=== PATIENT | male | born 1990 | race Caucasian/White ===

== ENCOUNTER 2023-02-14 10:51 | Emergency (ER) | payer BC, MEDICAID, SELFPAY ==
--- NOTE | 2023-02-14 10:51 | ECG_ITS ---
APPROVED REPORT Exam: Resting ECG HR:84 bpm ECG Measurements Heart Rate 84 AXES UT 136 P 39 QRSd 116 QRS 18 QT 361 T 31 QTc 402 Conclusion SINUS RHYTHM POSSIBLE RIGHT VENTRICULAR CONDUCTION DELAY [RSR (QR) IN V1/V2] POSSIBLE LATERAL MYOCARDIAL INFARCTION , PROBABLY OLD [30 ms Q WAVE IN I/aVL/V5/V6] BORDERLINE ECG UNCONFIRMED REPORT Electronically signed by : Chris Wild MD 02/14/2023 20:03:48
[2023-02-14 10:53] VITALS: BP 133/90; PULSE 84; RESP 16; TEMP 36.7; O2SAT 98; BMI 36.9
[2023-02-14 11:00] VITALS: BP 120/84; PULSE 82; RESP 13
--- NOTE | 2023-02-14 11:06 | XR_ITS ---
FINAL REPORT CLINICAL HISTORY: chest pain FINDINGS: SINGLE-VIEW CHEST The heart size is normal. The mediastinum is normal. The lungs are clear. There is no pneumothorax. IMPRESSION: No acute cardiopulmonary process. Reviewed, Interpreted and Dictated by Joao Hurst III, MD Transcribed by Nicki Coleman Authenticated and [facility]
--- NOTE | 2023-02-14 11:20 | HMH.EDGENADL ---
Discharge Plan Disposition Patient Disposition: Home, Self-Care Condition: Good Prescriptions Prescriptions: New amoxicillin-pot clavulanate 875-125 mg tablet 1 tab PO BID Qty: 20 0RF prednisone 50 mg tablet 50 mg PO DAILY 7 Days Qty: 7 0RF naproxen [Naprosyn] 500 mg tablet 500 mg PO BID PRN (Reason: pain) Qty: 20 0RF Referrals Follow up/Referrals: Provider,Referral, MD [Primary Care Provider] - See instructions Clinical Impressions Clinical Impression: Acute sinusitis, Atypical chest pain Instructions Patient Instructions: Sinusitis, DI for Sinusitis, DI for Atypical Chest Pain Discharge ED Provider: Kwesi Lewis General Adult HPI General Chief complaint: Chest Pain Stated complaint: CP Time Seen by Provider: 02/14/23 11:00 Mode of Arrival: Ambulatory Source of Information: Patient and Spouse Limitations: No Limitations Description of Symptoms (Recalled from ER Triage Doc. by RN): 32 yo M presents to ED with c/o midsternal chest pain. pt states that chest pain intermittent and ongoing for the past few days. pt states that he has also had sinus drainage ongoing for the past month. History of Present Illness HPI narrative: This is a 32-year-old white male who states for the past month he has had nasal congestion and sinus pressure with discharge that initially was light yellow and recently changed to dark green-brown and black. Patient also states over the course the past few days he has had pleuritic type chest pain and a cough productive of clear to yellow sputum. Patient is a smoker. Patient denies any fevers chills nausea vomiting. Patient does admit to a frontal headache. No neck stiffness no unilateral weakness or numbness no nausea vomiting diaphoresis Related Data Previous Rx's Medication Instructions Recorded amoxicillin 875 mg-potassium 1 tab PO BID #20 tabs 02/14/23 clavulanate 125 mg tablet naproxen 500 mg tablet (Naprosyn) 500 mg PO BID PRN pain #20 tabs 02/14/23 prednisone 50 mg tablet 50 mg PO DAILY 7 days #7 tabs 02/14/23 Allergies Allergy/AdvReac Type Severity Reaction Status Date / Time No Known Allergies Allergy Verified 05/23/19 18:19 [facility] Disclaimer: The information contained in this section may have been updated after the patient was seen, as this information can be updated by other users. Social History Smoking Status: Current every day smoker alcohol intake: current current occupational status: employed Travel in the last 8 weeks: Inside the [place] ROS Obtained: Yes All systems reviewed & no additional complaints except as documented Skin no rash or lesions HEENT see HPI Pulmonary see HPI Cardiovascular no chest pain pressure heaviness GI no abdominal pain nausea or vomiting no dysuria pyuria hematuria Musculoskeletal no neck or back pain Endocrine no polydipsia polyuria or polyphasia Psych no SI or HI The rest of the systems were reviewed and found to be negative Physical Exam Narrative Physical exam: Skin: Warm and dry HEENT: Normocephalic atraumatic extract muscles are intact pupils are equal and reactive to light there is tenderness to percussion over bilateral frontal and maxillary sinuses. Pharynx is not injected. Neck: Supple nontender Lungs: Clear to auscultation Heart: Regular rate and rhythm Chest: There is reproducible costochondral tenderness. Abdomen: NABS soft nontender Extremities: No clubbing cyanosis or edema Neurologic: No unilateral weakness or numbness Lymphatic: No cervical or inguinal adenopathy Musculoskeletal: No tenderness of the dorsal or lumbar spine Psych: No SI or HI General General appearance: alert Respiratory Respiratory exam: Present normal lung sounds bilaterally Cardiovascular Cardiovascular exam: Present regular rate Neurological Exam Neurological exam: Present alert Medical Decision Making Kevin Inquiry Pt receiving controlled substance: No Vital Signs: 02/14/23
[2023-02-14 11:24] LABS: Anion Gap 11.8 mEq/L (5-15); Blood Urea Nitrogen 9 mg/dl (9-20); Carbon Dioxide 29 mmol/L (22.0-30.0); Chloride 102 mmol/L (98-107); Creatinine Clearance Estimated 215 mL/min (50-200); Estimated Glomerular Filt Rate 113 ml/min (>60); GFR (African American) 136 ML/MIN (>60); Glucose 84 mg/dl (74-100); Potassium 3.8 mmoL/L (3.5-5.1); Sodium 139 mmol/L (136-145)
[2023-02-14 11:31] LABS: Basophils # 0.1 K/mm3 (0-0.2); Basophils % 0.6 % (0.1-2.0); Eosinophils # 0.2 K/mm3 (0.0-0.4); Hematocrit 51.9 % (42.0-52.0); Hemoglobin 17.2 g/dL (14.1-18.0); Lymphocytes # 2.1 K/mm3 (0.7-4.5); Lymphocytes % 26.7 % (10-50); Mean Corpuscular HGB Conc 33.1 g/dL (31.8-35.4); Mean Corpuscular Hemoglobin 33.8 pg (27.0-31.2); Mean Corpuscular Volume 102.3 fl (80-94); Mean Platelet Volume 8.1 fl (7.4-10.4); Monocytes # 0.5 K/mm3 (0.1-1.0); Monocytes % 6.9 % (1.7-9.3); Neutrophils % 63.9 % (37.0-80.0); Platelet Count 256 K/mm3 (142-424); Red Blood Count 5.07 M/mm3 (4.60-6.20); White Blood Count 7.8 K/mm3 (4.8-10.8)
[2023-02-14 11:36] LABS: Troponin I < 0.01 ng/ml (0.00-0.034)
[2023-02-14 11:45] VITALS: BP 133/96; PULSE 82; RESP 14; TEMP 36.7
== END 2023-02-14 11:47 | disposition home or self-care (01) ==
PROVIDERS: Emergency Provider Emergency Medicine
DX: J01.90 Acute sinusitis, unspecified; R07.81 Pleurodynia; F17.200 Nicotine dependence, unspecified, uncomplicated; I45.19 Other right bundle-branch block
CPT/HCPCS: 71045; 80048; 84484; 85025; 93005; 96374; 99285

== ENCOUNTER 2024-08-17 12:43 | Emergency (ER) | payer MEDICAID, SELFPAY ==
[2024-08-17 12:44] VITALS: BP 149/92; PULSE 120; RESP 18; TEMP 36.8; O2SAT 96; BMI 34.7
--- NOTE | 2024-08-17 13:12 | ECG_ITS ---
APPROVED REPORT Exam: Resting ECG HR:117 bpm ECG Measurements Heart Rate 117 AXES IL 139 P 57 QRSd 108 QRS 31 QT 308 T 60 QTc 378 Conclusion SINUS TACHYCARDIA INCOMPLETE RIGHT BUNDLE BRANCH BLOCK [90+ ms QRS DURATION, TERMINAL R IN V1/V2, 40+ ms S IN I/aVL/V4/V5/V6] Electronically signed by : JOSE CARVAJAL, 08/17/2024 16:07:46
--- NOTE | 2024-08-17 13:32 | ED_ITS ---
<Statement entered by Teagan Castrejon DO - 08/17/24 15:42> I was consulted by the LUDMILA, and we discussed the complexity of the problems being addressed. I approved the treatment and management plan for this patient's care in the emergency department, thus performing a substantive portion of the medical decision making. Teagan Castrejon DO Discharge Plan Disposition Patient Disposition: Home, Self-Care Condition: Good Prescriptions Prescriptions: No Action amoxicillin-pot clavulanate 875-125 mg tablet 1 tab PO BID Qty: 20 0RF prednisone 50 mg tablet 50 mg PO DAILY 7 Days Qty: 7 0RF naproxen [Naprosyn] 500 mg tablet 500 mg PO BID PRN (Reason: pain) Qty: 20 0RF Referrals Follow up/Referrals: Andie Camarena APRN [Nurse Practitioner] - See instructions Provider,ReferralMD [Primary Care Provider] - See instructions Activity Restrictions/Add. Instructions Additional Instructions/Restrictions: Increase fluids and rest. May take daily allergy medicine to help with drainage. Call Sunshine Camarena APRN for follow-up with ENT to see if there is any additional testing or workup you may need. Clinical Impressions Clinical Impression: Pharyngitis Instructions Patient Instructions: Sore Throat, Viral Pharyngitis Print Language Print Language: Armenian Discharge ED Provider: Teagan Castrejon General Adult HPI <Rani Reyna (ED)FÉLIX - Last Filed: 08/17/24 15:39> General Chief complaint: Upper Respiratory Infection Stated complaint: red, swollen throat/lymph nodes Time Seen by Provider: 08/17/24 12:58 Mode of Arrival: Ambulatory Source of Information: Patient Limitations: No Limitations Description of Symptoms (Recalled from ER Triage Doc. by RN): PT C/O RED SWOLLEN THROAT AND LYMPHNODES X 3 MONTHS. DENIES FEVER History of Present Illness HPI narrative: This is a 34-year-old male who presents to the ED today with complaint of red swollen throat for the last 3 months. He says the sore part of his throat is gone but the redness and swelling is still there. He denies any fevers, chills, nausea or vomiting. He states that he does have an itchy cough at times but this comes and goes. He says when he does cough it sends pain to the back of his head. He says he is a heavy smoker and a drinker. He drinks heavily. He drinks 6/day during the week and then a 12 pack/day on the weekends. He says he [facility] during the beginning of the illness but was given meds that did not work. He says his lymph nodes are also swollen. Patient is tachycardic when I am in the room at 127 but he also has a Monster energy drink sitting beside him. Related Data Previous Rx's ?Medication ?Instructions ?Recorded amoxicillin 875 mg-potassium 1 tab PO BID #20 tabs 02/14/23 clavulanate 125 mg tablet naproxen 500 mg tablet (Naprosyn) 500 mg PO BID PRN pain #20 tabs 02/14/23 prednisone 50 mg tablet 50 mg PO DAILY 7 days #7 tabs 02/14/23 Allergies Allergy/AdvReac Type Severity Reaction Status Date / Time No Known Allergies Allergy Verified 05/23/19 18:19 PFSH <Rani Reyna (ED), HARNESS CUTTER - Last Filed: 08/17/24 15:39> PFS Disclaimer: The information contained in this section may have been updated after the patient was seen, as this information can be updated by other users. Social History (Updated 02/14/23 @ 11:27 by Kwesi Lewis MD) Smoking Status: Current every day smoker alcohol intake: current current occupational status: employed Travel in the last 8 weeks: Inside the [place] Have you lived/traveled outside [place] in past 30 days?: No Contact w/someone who lives/traveled outside US past 30 days?: No Exposure to someone with infectious disease in past 14 days?: No Do you have a fever (greater than 100.4 F or 38 C)?: No Have you tested positive for COVID-19: No Exposed to someone with COVID-19 in past 14 days?: No Do you have a sore throat?: Yes Do you have a cough?: No Do you have any weakness?: No Do you have any diarrhea?: No Are you experiencing any unusual bleeding?: No Do you have any muscle aches/pain?: No Do you have any abdominal pain?: No Are you experiencing loss of taste or smell?: No <Rani Reyna (ED), HARNESS CUTTER - Last Filed: 08/17/24 15:39> ROS Obtained: Yes Systems reviewed as appropriate & no additional complaints except as documented Constitutional Constitutional: Reports as per HPI Physical Exam <Rani Reyna (ED), HARNESS CUTTER - Last Filed: 08/17/24 15:39> General General appearance: alert and in no apparent distress Head Head exam: atraumatic and normocephalic Eye Eye exam: Present normal appearance, PERRL and EOMI ENT ENT exam: Present normal exam and mucous membranes moist Expanded ENT Exam Mouth exam: Present normal external inspection and tongue normal Comment: Erythema and mild swelling throughout the back of his throat no obvious drainage or masses Neck Neck exam: Present normal inspection, full ROM and trachea midline Respiratory Respiratory exam: Present normal lung sounds bilaterally Cardiovascular Cardiovascular exam: Present normal rhythm, tachycardia, normal heart sounds, +S1 and +S2 Extremities Exam Extremities exam: Present full ROM and normal capillary refill Neurological Exam Neurological exam: Present alert, oriented X3 and normal gait Skin Skin exam: Present warm, dry and intact Medical Decision Making <Rani Reyna (ED), HARNESS CUTTER - Last Filed: 08/17/24 15:39> Medical Records Screening: Per USPSTF and CDC recommendations, given the prevalence of disease in our region, it is our hospital?s policy to screen for HIV and viral Hepatitis for all patients aged 18 and over and those with ongoing risk factors. Kevin Inquiry Pt receiving controlled substance: No Kevin was queried for this patient: No Vital Signs: 08/17/24 12:44 08/17/24 14:29 08/17/24 15:09 Temperature 98.2 F 98.4 F Temperature Source Oral Pulse Rate 104 H 91 H Pulse Rate [Radial] 120 H Respiratory Rate 18 18 18 Blood Pressure 142/94 H 143/69 H Blood Pressure [Left Arm] 149/92 H Blood Pressure Mean [Left Arm] 111 Blood Pressure Source [Left Arm] Automatic Cuff Blood Pressure Position [Left Arm] Sitting 02 Sat by Pulse Oximetry 96 96 Oxygen Delivery Method Room Air Lab Data Lab Results 08/17/24 12:54: Group A Strep Rapid Negative 08/17/24 13:10: Sodium 141, Potassium 4.1, Chloride 110 H, Carbon Dioxide 27, Anion Gap 8.1, BUN 14, Creatinine 1.10, Estimated Creat Clear 144, Estimated GFR 77, Est GFR ( Amer) 93, Glucose 104 H, Calcium 9.4, Total Bilirubin 1.5 H , AST 89 H, ALT 100 H, Alkaline Phosphatase 79, Total Protein 7.4, Albumin 4.4, Globulin 3.0, Albumin/Globulin Ratio 1.5, Chlamy pneumoniae PCR Not detected, Adenovirus (PCR) Not detected, B. pertussis DNA (PCR) Not detected, Coronavirus OC43 (PCR) Not detected, Coronavirus HKU1 (PCR) Not detected, Coronavirus 229E (PCR) Not detected, SARS-CoV-2 (PCR) Not detected, Coronavirus NL63 (PCR) Not detected, Human Metapneumovir PCR Not detected, Influenza A (H1) PCR Not detected, Influ A (H1N1/09) PCR Not detected, Influenza A (H3) PCR Not detected, Influenza Type A (PCR) Not detected, Influenza Type B (PCR) Not detected, M. pneumoniae (PCR) Not detected, Parainfluenza 1 (PCR) Not detected, Parainfluenza 2 (PCR) Not detected, Parainfluenza 3 (PCR) Not detected, Parainfluenza 4 (PCR) Not detected, RSV (PCR) Not detected, Entero/Rhino (PCR) Not detected 08/17/24 13:30: WBC 7.7, RBC 4.69, Hgb 17.5, Hct 48.6, MCV 103.6 H, MCH 37.3 H, MCHC 36.0 H, RDW 13.3, Plt Count 249, MPV 7.7, Neut % (Auto) 61.6, Lymph % (Auto) 28.7, Karnes % (Auto) 7.0, Eos % (Auto) 1.7, Baso % (Auto) 1.1, Neut # (Auto) 4.7, Lymph # (Auto) 2.2, Karnes # (Auto) 0.5, Eos # (Auto) 0.1, Baso # (Auto) 0.1 08/17/24 13:30 08/17/24 13:10 Orders (Tests/Meds): ED MEDICATIONS Discontinued Medications Generic Name Dose Route Start Last Admin Trade Name Freq PRN Reason Stop Dose Admin Sodium Chloride 1,000 mls @ 999 mls/hr 08/17/24 13:10 08/17/24 13:35 Sod Chlor 0.9% 1000ml Bag IV 08/17/24 14:10 999 mls/hr .Q1H1M ONE Administration ORDERS Category Date Time Status CBC w/Auto Diff [Complete Blood Count Auto Diff] Stat Lab 08/17/24 13:30 Completed Comprehensive Metabolic Panel Stat Lab 08/17/24 13:10 Completed Full Resp Panel w/COVID ([facility]) Routine Lab 08/17/24 13:10 Completed HIV (1&2) Antibody Rapid Stat Lab 08/17/24 13:10 Received Hep C Ab with Reflex to RNA Stat Lab 08/17/24 13:10 Received Strep Scrn Group A (Rapid) Stat Lab 08/17/24 12:54 Completed Strep Screen Confirmation Stat Micro 08/17/24 12:54 Received Medical Decision Narrative: Insert review patient is a 34-year-old male presenting to the emergency department for evaluation of 3 months of red, swollen throat. He has had this redness and swelling in his throat for the past 3 months with a occasional itchy cough. He has been treated once by [facility] and the medications did not work for him he is concerned that he has something very serious.. Patient is hemodynamically stable and nontoxic-appearing upon arrival, afebrile. Differential diagnosis includes chronic allergies, lymphadenopathy, chronic cough among others. Workup will be conducted with strep swab, respiratory swab, CBC CMP. Initial inventions include crystalloid bolus as patient's heart rate initially was 121. However patient was drinking 2 monsters while here in the ED.. Initial workup reviewed by al hematologic labs are remarkable for nothing acute. Upon repeat evaluation patient's pain is improved, appears better perfused. Referred patient to ENT. <Teagan Castrejon, DO - Last Filed: 08/17/24 13:41> Vital Signs: 08/17/24 12:44 08/17/24 14:29 08/17/24 15:09 Temperature 98.2 F 98.4 F Temperature Source Oral Pulse Rate 104 H 91 H Pulse Rate [Radial] 120 H Respiratory Rate 18 18 18 Blood Pressure 142/94 H 143/69 H Blood Pressure [Left Arm] 149/92 H Blood Pressure Mean [Left Arm] 111 Blood Pressure Source [Left Arm] Automatic Cuff Blood Pressure Position [Left Arm] Sitting 02 Sat by Pulse Oximetry 96 96 Oxygen Delivery Method Room Air Lab Data Lab Results 08/17/24 12:54: Group A Strep Rapid Negative 08/17/24 13:10: Sodium 141, Potassium 4.1, Chloride 110 H, Carbon Dioxide 27, Anion Gap 8.1, BUN 14, Creatinine 1.10, Estimated Creat Clear 144, Estimated GFR 77, Est GFR ( Amer) 93, Glucose 104 H, Calcium 9.4, Total Bilirubin 1.5 H , AST 89 H, ALT 100 H, Alkaline Phosphatase 79, Total Protein 7.4, Albumin 4.4, Globulin 3.0, Albumin/Globulin Ratio 1.5, Chlamy pneumoniae PCR Not detected, Adenovirus (PCR) Not detected, B. pertussis DNA (PCR) Not detected, Coronavirus OC43 (PCR) Not detected, Coronavirus HKU1 (PCR) Not detected, Coronavirus 229E (PCR) Not detected, SARS-CoV-2 (PCR) Not detected, Coronavirus NL63 (PCR) Not detected, Human Metapneumovir PCR Not detected, Influenza A (H1) PCR Not detected, Influ A (H1N1/09) PCR Not detected, Influenza A (H3) PCR Not detected, Influenza Type A (PCR) Not detected, Influenza Type B (PCR) Not detected, M. pneumoniae (PCR) Not detected, Parainfluenza 1 (PCR) Not detected, Parainfluenza 2 (PCR) Not detected, Parainfluenza 3 (PCR) Not detected, Parainfluenza 4 (PCR) Not detected, RSV (PCR) Not detected, Entero/Rhino (PCR) Not detected 08/17/24 13:30: WBC 7.7, RBC 4.69, Hgb 17.5, Hct 48.6, MCV 103.6 H, MCH 37.3 H, MCHC 36.0 H, RDW 13.3, Plt Count 249, MPV 7.7, Neut % (Auto) 61.6, Lymph % (Auto) 28.7, Karnes % (Auto) 7.0, Eos % (Auto) 1.7, Baso % (Auto) 1.1, Neut # (Auto) 4.7, Lymph # (Auto) 2.2, Karnes # (Auto) 0.5, Eos # (Auto) 0.1, Baso # (Auto) 0.1 Orders (Tests/Meds): ED MEDICATIONS Discontinued Medications Generic Name Dose Route Start Last Admin Trade Name Freq PRN Reason Stop Dose Admin Sodium Chloride 1,000 mls @ 999 mls/hr 08/17/24 13:10 08/17/24 13:35 Sod Chlor 0.9% 1000ml Bag IV 08/17/24 14:10 999 mls/hr .Q1H1M ONE Administration ORDERS Category Date Time Status CBC w/Auto Diff [Complete Blood Count Auto Diff] Stat Lab 08/17/24 13:30 Completed Comprehensive Metabolic Panel Stat Lab 08/17/24 13:10 Completed Full Resp Panel w/COVID ([facility]) Routine Lab 08/17/24 13:10 Completed HIV (1&2) Antibody Rapid Stat Lab 08/17/24 13:10 Received Hep C Ab with Reflex to RNA Stat Lab 08/17/24 13:10 Received Strep Scrn Group A (Rapid) Stat Lab 08/17/24 12:54 Completed Strep Screen Confirmation Stat Micro 08/17/24 12:54 Received ECG Data Tracing #1: I reviewed this ECG and interpreted as documented below: Sinus tachycardia with a ventricular to 117 bpm. Incomplete right bundle branch block. No acute ST changes concerning for STEMI. ECG initial impression date: 08/17/24 ECG initial impression time: 13:15 Critical Care <Rani Reyna (ED), HARNESS CUTTER - Last Filed: 08/17/24 15:39> Critical Care Time Critical Care Time: No
[2024-08-17 13:35] LABS: Strep Scrn Group A (Rapid) Negative (Negative)
[2024-08-17] MEDS: 0.9 % SODIUM CHLORIDE 1000ML 1,000 ML 999 ML IV (13:35)
[2024-08-17 13:42] LABS: Adenovirus,PCR Not Detected (NotDetected); Bordetella Pertussis Not Detected (NotDetected); Chlamydophila Pneumoniae, PCR Not Detected (NotDetected); Coronavirus 19, PCR Not Detected (NotDetected); Coronavirus 229E Not Detected (NotDetected); Coronavirus NL63 Not Detected (NotDetected); Coronavirus OC43 Not Detected (NotDetected); Coronovirus HKU1,PCR Not Detected (NotDetected); Human Metapneumovirus Not Detected (NotDetected); Influenza A, PCR Not Detected (NotDetected); Influenza AH1, 2009 Not Detected (NotDetected); Influenza AH1, PCR Not Detected (NotDetected); Influenza AH3,PCR Not Detected (NotDetected); Influenza B, PCR Not Detected (NotDetected); Mycoplasma Pneumoniae, PCR Not Detected (NotDetected); Parainfluenza 1, PCR Not Detected (NotDetected); Parainfluenza 2, PCR Not Detected (NotDetected); Parainfluenza 3, PCR Not Detected (NotDetected); Parainfluenza 4, PCR Not Detected (NotDetected); Respiratory Syncytial Virus Not Detected (NotDetected); Rhinovirus/Enterovirus Not Detected (NotDetected)
[2024-08-17 13:48] LABS: Albumin Level 4.4 g/dl (3.5-5.0); Chloride 110 mmol/L (98-107); Potassium 4.1 mmoL/L (3.5-5.1); Sodium 141 mmol/L (136-145)
[2024-08-17 13:51] LABS: Alanine Aminotransferase 100 U/L (12-78); Albumin/Globulin Ratio 1.5 (1.1-1.8); Alkaline Phosphatase 79 U/L (38-126); Anion Gap 8.1 mEq/L (5-15); Aspartate Amino Transferase 89 U/L (17-59); Bilirubin,Total 1.5 mg/dl (0.2-1.3); Blood Urea Nitrogen 14 mg/dl (9-20); Calcium 9.4 mg/dl (8.4-10.2); Carbon Dioxide 27 mmol/L (22.0-30.0); Creatinine Clearance Estimated 144 mL/min (50-200); Estimated Glomerular Filt Rate 77 ml/min (>60); GFR (African American) 93 ML/MIN (>60); Glucose 104 mg/dl (74-100); Total Protein,Serum 7.4 g/dl (6.3-8.2)
[2024-08-17 14:05] LABS: Basophils # 0.1 K/mm3 (0-0.2); Basophils % 1.1 % (0.1-2.0); Eosinophils # 0.1 K/mm3 (0.0-0.4); Eosinophils % 1.7 % (0.1-12.0); Hematocrit 48.6 % (42.0-52.0); Hemoglobin 17.5 g/dL (14.1-18.0); Lymphocytes # 2.2 K/mm3 (0.7-4.5); Lymphocytes % 28.7 % (10-50); Mean Corpuscular Hemoglobin 37.3 pg (27.0-31.2); Mean Corpuscular Volume 103.6 fl (80-94); Mean Platelet Volume 7.7 fl (7.4-10.4); Monocytes # 0.5 K/mm3 (0.1-1.0); Neutrophils # 4.7 K/mm3 (1.8-7.8); Neutrophils % 61.6 % (37.0-80.0); Platelet Count 249 K/mm3 (142-424); Red Blood Count 4.69 M/mm3 (4.60-6.20); Red Cell Distribution Width 13.3 % (11.5-17.5); White Blood Count 7.7 K/mm3 (4.8-10.8)
[2024-08-17 14:29] VITALS: BP 142/94; PULSE 104; RESP 18; O2SAT 96
[2024-08-17 15:09] VITALS: BP 143/69; PULSE 91; RESP 18; TEMP 36.9; O2SAT 99
[2024-08-18 15:33] LABS: HIV Combo NEGATIVE (Negative)
[2024-08-19 10:08] LABS: HCV Ab Non Reactive (Non Reactive)
== END 2024-08-17 15:09 | disposition home or self-care (01) ==
PROVIDERS: Nurse Practitioner; Emergency Provider Emergency Medicine
DX: J02.9 Acute pharyngitis, unspecified (principal); R59.9 Enlarged lymph nodes, unspecified; R05.8 Other specified cough; Z72.0 Tobacco use
CPT/HCPCS: 80053; 85025; 86803; 87389; 87430; 87633; 93005; 96360; 99283; J7030